=== PATIENT | female | born 1985 | race Caucasian/White ===

== ENCOUNTER 2025-04-16 10:32 | Outpatient (CLI) | payer OTHER, SELFPAY ==
[2025-04-20 12:08] LABS: Anti-dsDNA Ab 3 IU/mL (0-9)
== END 2025-04-16 23:59 | disposition home or self-care (01) ==
PROVIDERS: PCP Family Medicine; Referring Provider Dermatology; Visit Provider Dermatology
DX: L56.4 Polymorphous light eruption (principal)
CPT/HCPCS: 36415; 86038; 86225